=== PATIENT | male | born 1970 | race Two or more races ===

== ENCOUNTER 2017-12-15 14:25 | Emergency (ER) | payer OTHER ==
[~2017-12-15] VITALS: Ht 185.4 cm; Wt 86.2 kg
[2017-12-15 14:48] VITALS: BP 159/96
[2017-12-15] MEDS ORDERED: METFORMIN HCL850 M1 ORAL (14:58)
[2017-12-15] MEDS ORDERED: ATORVASTATIN CA10 MG ORAL (14:58)
[2017-12-15] MEDS ORDERED: MAGNESIUM27 MG PO (14:59)
[2017-12-15] MEDS ORDERED: ASPIR 8181 MG ORAL (14:59)
[2017-12-15] MEDS ORDERED: LISINOPRIL30 MG ORAL (14:59)
[2017-12-15] MEDS ORDERED: Piperacillin/Tazobactam 3.375 GM in NS 110 ML IVPB ONE (15:00)
[2017-12-15] MEDS ORDERED: Insulin Human Regular 100units/ml 3ml SUBQ ONE (15:15)
[2017-12-15] MEDS ORDERED: Lidocaine 1% MPF 10mg/ml 5ml INJ ONE (15:30)
[2017-12-15 15:36] LABS: APPEARANCE,URINE CLEAR; BILIRUBIN, URINE NEGATIVE (NEGATIVE); COLOR,URINE PALE YELLOW; GLUCOSE, URINE (UA) 4+ (NEGATIVE); KETONES,URINE NEGATIVE (NEGATIVE); LEUKOCYTE ESTERASE ,URINE NEGATIVE (NEGATIVE); NITRITE,URINE NEGATIVE (NEGATIVE); PH,URINE 5 (4.5-8.0); PROTEIN,URINE 4+ (NEGATIVE); UROBILINOGEN,URINE NORMAL MG/DL (0.0-1.0)
[2017-12-15 15:40] LABS: HEMATOCRIT 27.1 % (42.0-52.0); HEMOGLOBIN 9.6 G/DL (14.2-18.0); MEAN CORPUSCULAR VOLUME 83 FL (80-99); PLATELET COUNT 324 K/UL (150-450); RED BLOOD COUNT 3.26 M/UL (4.70-6.10); RED CELL DISTRIBUTION WIDTH 10.4 % (11.6-14.8); WHITE BLOOD COUNT 14.7 K/UL (4.8-10.8)
[2017-12-15 15:50] LABS: ANION GAP 11 mmol/L (5-15); BLOOD UREA NITROGEN 12 mg/dL (7-18); CALCIUM 8.1 MG/DL (8.5-10.1); CARBON DIOXIDE 23 MMOL/L (21-32); CHLORIDE 96 MMOL/L (98-107); CREATININE 1.1 MG/DL (0.55-1.30); POTASSIUM 4.1 MMOL/L (3.5-5.1); SODIUM 129 MMOL/L (136-145)
--- NOTE | 2017-12-15 15:58 | Emergency Room Report ---
History of Present Illness General Chief Complaint: General Complaint Source: Patient Present Illness HPI Patient is a 46-year-old male who presented after increased left middle finger swelling. The patient stated this had been present for 3 days. Patient denied any fever. He the reports being diabetic. 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 Allergies: Coded Allergies: No Known Allergies (Unverified , 12/15/17) Patient History Past Medical History: see triage record Reviewed Nursing Documentation: PMH: Agreed; PSxH: Agreed Nursing Documentation-PMH Past Medical History: No History, Except For Hx Hypertension: Yes Hx Diabetes: Yes Review of Systems All Other Systems: negative except mentioned in HPI Physical Exam Vital Signs Date Time Temp Pulse Resp B/P (MAP) Pulse Ox O2 Delivery O2 Flow Rate FiO2 12/15/17 14:37 99.0 91 12 166/94 99 Room Air 99.0 General Appearance: well appearing, no apparent distress, alert, GCS 15 Head: normocephalic, atraumatic ENT: hearing grossly normal, normal voice Neck: full range of motion, supple Respiratory: no respiratory distress, speaking full sentences Cardiovascular #1: normal inspection, no edema Gastrointestinal: normal inspection, non tender, soft Musculoskeletal: normal inspection, back normal, digits/nails normal, no calf tenderness, other - left bka Neurologic: normal inspection, alert, oriented x3, responsive, normal gait Psychiatric: mood/affect normal Skin: other - left middle finger markedly swelling, erythema and induration to dorsum of the forearm. Procedures Incision and Drainage Incision and Drainage : Consent: Verbal Site: middle finger Blade Size: 11 I & D Procedure: betadine prep, sterile drapes applied Wound's Depth, Shape: superficial Wound Length (cm): 1 Anesthesia: 1% Lidocaine Volume Anesthetic (ccs): 2 Patient Tolerated: Well Complications: None Progress I attempted incision in lateral bilateral incision and drainage of abscess in the paronychial area with minimal pulurent drainage. Medical Decision Making Diagnostic Impression: Primary Impression: Soft tissue abscess Additional Impressions: Uncontrolled diabetes mellitus Abscess of forearm, left ER Course Patient presented for left hand swelling. Differential diagnosis included was not limited to arthritis, myocardial infarction, vascular occlusion, fracture, osteomyelitis, septic joint among others.Because of complexity of patient's case laboratory testing and imaging studies were ordered. The laboratory studies were notable for markedly elevated white blood count. Patient's blood sugar was noted be greater than 400. An IV fluids and given subcutaneous insulin. The patient started on IV antibiotics. The patient was consented for incision and drainage. The patient was noted to have markedly swelling and pain to the left middle finger. Distal incision and drainage near the distal phalanx was performed prior to CT imaging. Minimal purulent drainage was obtained. The patient was noted to have evidence of infection. Hand surgical specialists are not currently available. The patient was discussed with [facility] for transfer to higher level care for hand surgery. Dr. Bunn accepting. Labs Test 12/15/17 15:10 12/15/17 15:16 12/15/17 15:54 White Blood Count 14.7 K/UL (4.8-10.8) Red Blood Count 3.26 M/UL (4.70-6.10) Hemoglobin 9.6 G/DL (14.2-18.0) Hematocrit 27.1 % (42.0-52.0) Mean Corpuscular Volume 83 FL (80-99) Mean Corpuscular Hemoglobin 29.6 PG (27.0-31.0) Mean Corpuscular Hemoglobin Concent 35.6 G/DL (32.0-36.0) Red Cell Distribution Width 10.4 % (11.6-14.8) Platelet Count 324 K/UL (150-450) Mean Platelet Volume 5.2 FL (6.5-10.1) Neutrophils (%) (Auto) % (45.0-75.0) Lymphocytes (%) (Auto) % (20.0-45.0) Monocytes (%) (Auto) % (1.0-10.0) Eosinophils (%) (Auto) % (0.0-3.0) Basophils (%) (Auto) % (0.0-2.0) Differential Total Cells Counted 100 Neutrophils % (Manual) 85 % (45-75) Lymphocytes % (Manual) 8 % (20-45) Monocytes % (Manual) 6 % (1-10) Eosinophils % (Manual) 1 % (0-3) Basophils % (Manual) 0 % (0-2) Band Neutrophils 0 % (0-8) Platelet Estimate Adequate Platelet Morphology Normal Hypochromasia 1+ Anisocytosis 1+ Sodium Level 129 MMOL/L (136-145) Potassium Level 4.1 MMOL/L (3.5-5.1) Chloride Level 96 MMOL/L (98-107) Carbon Dioxide Level 23 MMOL/L (21-32) Anion Gap 11 mmol/L (5-15) Blood Urea Nitrogen 12 mg/dL (7-18) Creatinine 1.1 MG/DL (0.55-1.30) Estimat Glomerular Filtration Rate > 60 mL/min (>60) Glucose Level 461 MG/DL (74-106) Lactic Acid Level 2.30 mmol/L (0.66-2.22) Calcium Level 8.1 MG/DL (8.5-10.1) Total Bilirubin 0.6 MG/DL (0.2-1.0) Aspartate Amino Transf (AST/SGOT) 9 U/L (15-37) Alanine Aminotransferase (ALT/SGPT) 10 U/L (12-78) Alkaline Phosphatase 102 U/L (46-116) Total Creatine Kinase 59 U/L (26-308) Creatine Kinase MB 0.5 NG/ML (0.0-3.6) Creatine Kinase MB Relative Index 0.8 Troponin I 0.001 ng/mL (0.000-0.056) Total Protein 7.2 G/DL (6.4-8.2) Albumin 2.2 G/DL (3.4-5.0) Globulin 5.0 g/dL Albumin/Globulin Ratio 0.4 (1.0-2.7) Urine Color Pale yellow Urine Appearance Clear Urine pH 5 (4.5-8.0) Urine Specific [place] 1.010 (1.005-1.035) Urine Protein 4+ (NEGATIVE) Urine Glucose (UA) 4+ (NEGATIVE) Urine Ketones Negative (NEGATIVE) Urine Occult Blood 4+ (NEGATIVE) Urine Nitrite Negative (NEGATIVE) Urine Bilirubin Negative (NEGATIVE) Urine Urobilinogen Normal MG/DL (0.0-1.0) Urine Leukocyte Esterase Negative (NEGATIVE) Urine RBC 2-4 /HPF (0 - 0) Urine WBC 0-2 /HPF (0 - 0) Urine Squamous Epithelial Cells None /LPF (NONE/OCC) Urine Bacteria Few /HPF (NONE) Last Vital Signs Date Time Temp Pulse Resp B/P (MAP) Pulse Ox O2 Delivery O2 Flow Rate FiO2 12/15/17 14:48 87 15 159/96 97 Room Air 12/15/17 14:37 99.0 99.0 Status: unchanged Disposition: XFER SHT-TRM HOSP Condition: Serious Referrals: NON PHYSICIAN (PCP) Ajay Trammell MD December 15, 2017 15:58
[2017-12-15 16:04] LABS: ALANINE AMINOTRANSFERASE 10 U/L (12-78); ALBUMIN 2.2 G/DL (3.4-5.0); ALBUMIN/GLOBULIN RATIO 0.4 (1.0-2.7); ALKALINE PHOSPHATASE 102 U/L (46-116); ASPARTATE AMINO TRANSFERASE 9 U/L (15-37); BILIRUBIN,TOTAL 0.6 MG/DL (0.2-1.0); CKMB 0.5 NG/ML (0.0-3.6); CREATINE KINASE 59 U/L (26-308)
[2017-12-15 16:22] LABS: INR 0.9 (0.9-1.1)
[2017-12-15] MEDS ORDERED: Isovue-300 100ml vial INJ PRN (16:45)
[2017-12-15 17:28] VITALS: BP 151/87
[2017-12-15 17:36] VITALS: BP 151/87
--- NOTE | 2017-12-16 10:13 | Diagnostic Imaging Report ---
Indication: Left hand pain and swelling. Attention third phalange Technique: Continuous helical imaging of the left hand/wrist/distal forearm was performed in the transaxial plane. Coronal 2-D reformatted images were also generated. Study obtained in a Siem[employer] Sensation [address] total DLP: 489 mGycm CTD/vol: 0.15 x 3, 11.52 mGy Comparison: None Findings: [id number] is from about the mid radius through the wrist and hand. There is generalized subcutaneous edema especially along the dorsal aspect of the forearm the hand and diffuse soft tissue swelling of the third digit. On the volar aspect of the third digit at the level of the distal phalange there is a focus of soft tissue air which appears to be contiguous with the skin and may be a laceration type injury or ulceration if the setting as infection. Correlate clinically. There is no obvious erosion of the distal phalangeal cortex. MRI is more sensitive for osteomyelitis if this is a concern. There is no obvious abscess or foreign body. IMPRESSION: Subcutaneous edema along the dorsal aspect of the distal forearm and hand presumably on the basis of cellulitis. Similar findings with regard to the third digit noted. Volar aspect ulceration and/or laceration injury. Correlate clinically. Consider further evaluation with MRI which is more sensitive and specific for acute osteomyelitis. [facility] has communicated the preliminary results to the Emergency Department. Their findings are largely concordant with this report. The CT scanner at [facility] is accredited by the [employer] and the scans are performed using dose optimization techniques as appropriate to a performed exam including Automatic Exposure control.
--- NOTE | 2017-12-16 10:50 | Diagnostic Imaging Report ---
Indication: Dyspnea Comparison: None A single view chest radiograph was obtained. Findings: Cardiomediastinal appearance is within normal limits for age. Pulmonary vascularity is appropriate. The diaphragmatic contour is smooth and costophrenic angles are sharp. No pleural effusions are identified. The bones are unremarkable. Impression: No acute findings
--- NOTE | 2017-12-16 14:24 | Cardiology Report ---
APPROVED REPORT EKG Measurement Heart [id number] Normal sinus rhythm Normal ECG
== END 2017-12-15 17:36 | disposition short-term general hospital (02) ==
LOC: EMR 15:00
DX: L02.512 Cutaneous abscess of left hand (principal); E11.65 Type 2 diabetes mellitus with hyperglycemia; L02.414 Cutaneous abscess of left upper limb; I10 Essential (primary) hypertension
CPT/HCPCS: 10060; 36415; 71045; 73202; 80053; 81003; 82550; 82553; 83605; 84484; 85007; 85025; 85610; 85730; 87040; 93005; 96360; 96374; 96375; 99285; J1815; J2543; Q9967